=== PATIENT | female | born 1970 | race Caucasian/White ===

== ENCOUNTER 2022-12-09 04:04 | Day surgery (SDC) | payer OTHER ==
[2022-12-07 17:15] VITALS: BMI 17.6
[2022-12-09] MEDS ORDERED: BUPIVACAINE HCL/PF 0.5% (5MG/ML) 10 ML VIAL ONE (13:12)
[2022-12-09] MEDS ORDERED: MIDAZOLAM HCL 2 MG/2 ML SINGLE DOSE VIAL ONE (13:16)
[2022-12-09] MEDS ORDERED: PROPOFOL 40 ML ONE (13:16)
[2022-12-09] MEDS ORDERED: LIDO 2%/EPI 1:200000 PRESRVFRE (20 ML SDVIAL) INF ONE (13:38)
[2022-12-09] MEDS ORDERED: PROPOFOL 20 ML ONE (13:56)
[2022-12-09] MEDS ORDERED: BUPIVACAINE HCL/PF 0.5% (5MG/ML) 10 ML VIAL NR ONE (14:08)
[2022-12-09] MEDS ORDERED: BENZOIN/ALOE VERA/STORAX/TOLU 58 ML BOTTLE TP ONE (14:08)
[2022-12-09 14:34] VITALS: RESP 20
[2022-12-09 14:52] VITALS: BP 111/69; PULSE 67; TEMP 97.8
== END 2022-12-09 15:15 | disposition home or self-care (01) ==
LOC: JASU-SURG 04:04
PROVIDERS: ATTEND Surgery Surgical Oncology
PROC: BH01ZZZ Plain Radiography of Left Breast (ICD-10-PCS; principal; 2022-12-09 13:30)
DX: N64.89 Other specified disorders of breast (principal)
CPT/HCPCS: 19281; A4648; 76098-TC-FY; 88307-TC; 88341-TC; 88342-TC